=== PATIENT | male | born 1945 | race Asian ===

== ENCOUNTER → 2018-07-05 | Outpatient (CLI) | payer OTHER ==
[~2018-07-05] MED LIST: CHOL400T55 PO; METFORMIN PO; TERA5CAP3 PO; TERAZOSIN PO; VITAMIN D PO; [UNRECOGNIZED DRUG - OTHER] PO; [UNRECOGNIZED DRUG - OTHER] PO
[2018-07-05 14:10] LABS: MICROSCOPIC NOT IND
[2018-07-05 14:18] LABS: ALANINE AMINOTRANSFERASE 35 U/L (12-78); ALBUMIN 3.5 g/dL (3.4-5.0); ANION GAP 8 mmol/L (5-15); CHLORIDE 109 mmol/L (98-107); CREATININE 0.88 mg/dL (0.7-1.3)
[2018-07-05 14:20] LABS: ALKALINE PHOSPHATASE 112 U/L (45-117); BILIRUBIN,TOTAL 0.5 mg/dL (0.2-1.0); TOTAL PROTEIN 7.7 g/dL (6.4-8.2)
== END | disposition home or self-care (01) ==
LOC: STAR 12:46
PROVIDERS: ATTEND Student in an Organized Health Care Education/Training Program
DX: Z01.818 Encounter for other preprocedural examination (principal); D29.1 Benign neoplasm of prostate; R35.0 Frequency of micturition; R39.198 Other difficulties with micturition
CPT/HCPCS: 36415; 80053; 81003; 87086; 93005

== ENCOUNTER → 2018-08-10 | Outpatient (CLI) | payer OTHER ==
[~2018-08-10] MED LIST changes: +ACET-1600 PO; +M-171CAP PO; +METF500T17 PO; +MIRA25TA PO
== END | disposition home or self-care (01) ==
LOC: STAR 12:58
PROVIDERS: ATTEND Student in an Organized Health Care Education/Training Program
DX: Z02.9 Encounter for administrative examinations, unspecified (principal)

== ENCOUNTER 2018-08-17 12:51 | Day surgery (SDC) | payer OTHER ==
[~2018-08-17] VITALS: Ht 160 cm; Wt 69.2 kg
[~2018-08-17 12:51] MED LIST changes: -ACET-1600 PO; -M-171CAP PO; -METF500T17 PO; -MIRA25TA PO
[2018-08-17] MEDS ORDERED: ACET-1600 PO (13:33)
[2018-08-17] MEDS ORDERED: MIRA25TA PO (13:33)
[2018-08-17] MEDS ORDERED: M-171CAP PO (13:33)
[2018-08-17] MEDS ORDERED: METF500T17 PO (13:33)
[2018-08-17] MEDS ORDERED: TERA5CAP3 PO (13:33)
[2018-08-17] MEDS ORDERED: VITAMIN D PO (13:33)
[2018-08-17] MEDS: LACTATED RINGERS 1,000 ML IV SCH ×2 (13:56→17:10)
[2018-08-17] MEDS ORDERED: CEFAZOLIN 1,000 MG ONE (15:04)
[2018-08-17] MEDS ORDERED: FENTANYL PF 100 MCG/2ML ONE ×2 (15:04→16:43)
[2018-08-17] MEDS ORDERED: PROPOFOL 10 MG/ML, 20ML ONE (15:04)
[2018-08-17] MEDS ORDERED: ONDANSETRON 2MG/ML, 2ML ONE (15:04)
[2018-08-17] MEDS ORDERED: MIDAZOLAM 1 MG/ML, 2ML ONE (15:04)
[2018-08-17] MEDS ORDERED: LIDOCAINE 2% 100MG/5ML SYRINGE ONE (15:04)
[2018-08-17] MEDS ORDERED: DEXAMETHASONE 4 MG/ML, 1ML ONE (15:04)
[2018-08-17] MEDS ORDERED: METOCLOPRAMIDE 5 MG/ML, 2ML ONE (15:04)
[2018-08-17] MEDS ORDERED: OXYcodone 5 MG/5 ML ORAL.SOL UDC ONE (16:43)
[2018-08-17] MEDS ORDERED: MEPERIDINE/PF 25MG/0.5ML IVPush PRN (17:00)
[2018-08-17] MEDS ORDERED: LABETALOL 5MG/ML, 20ML IV PRN (17:00)
[2018-08-17] MEDS ORDERED: ONDANSETRON 2MG/ML, 2ML IVPush PRN (17:00)
[2018-08-17] MEDS ORDERED: MIDAZOLAM 1 MG/ML, 2ML IV PRN (17:00)
[2018-08-17] MEDS ORDERED: HYDROmorphone 1 MG/ML, 1ML IV PRN (17:00)
[2018-08-17] MEDS ORDERED: FENTANYL PF 100 MCG/2ML IV PRN (17:00)
[2018-08-17] MEDS ORDERED: OXYcodone 5 MG/5 ML ORAL.SOL UDC PO PRN (17:00)
[2018-08-17 17:31] VITALS: BP 146/89
== END 2018-08-17 18:27 | disposition home or self-care (01) ==
LOC: OUT 12:51 → 4NOR 17:26 → OUT 18:27
PROVIDERS: ATTEND Student in an Organized Health Care Education/Training Program
DX: N40.1 Benign prostatic hyperplasia with lower urinary tract symptoms (principal); E11.9 Type 2 diabetes mellitus without complications; Z98.890 Other specified postprocedural states
CPT/HCPCS: 52648; 82962; J0690; J1100; J2250; J2405; J2704; J2765; J3010; J7120; G0378

== ENCOUNTER 2018-12-26 20:14 | Emergency (ER) | payer OTHER ==
[~2018-12-26] VITALS: Ht 160 cm; Wt 73.0 kg
[~2018-12-26 20:14] MED LIST changes: +ACET-1600 PO; +M-171CAP PO; +METF500T17 PO; +MIRA25TA PO
[2018-12-26] MEDS ORDERED: PHENAZOPYRIDINE 200 MG TABLET PO ONE (21:00)
[2018-12-26] MEDS ORDERED: PHENAZOPYRIDINE 100 MG TABLET ONE ×2 (21:03→21:04)
[2018-12-26 21:15] LABS: MICROSCOPIC NOT IND
[2018-12-26 21:19] LABS: CULTURE INDICATED? NO
--- NOTE | 2018-12-26 21:30 | NUR ---
PAIN WITH URINATION X TODAY, VOIDS FREQUENTLY IN SMALL AMOUNTS, BLADDER SCANNED BY MD, CALL LIGHT IN REACH
[2018-12-26] MEDS ORDERED: LIDOCAINE 2%,20 ML JEL.PF.APP MM ONE ×2 (21:35→22:00)
[2018-12-26 21:40] LABS: ANION GAP 9 mmol/L (5-15); CALCIUM 8.8 mg/dL (8.5-10.1); CHLORIDE 106 mmol/L (98-107); CREATININE 0.98 mg/dL (0.7-1.3)
--- NOTE | 2018-12-26 22:30 | NUR ---
AT BEDSIDE INSERTING CAMEJO CATH, SUCCESSFUL ON FIRST TRY
[2018-12-26] MEDS ORDERED: CEFTRIAXONE 1,000 MG IM ONE (23:30)
[2018-12-26] MEDS ORDERED: CEFTRIAXONE 1,000 MG ONE (23:53)
[2018-12-26] MEDS ORDERED: LIDOCAINE-MPF 1%, 2ML ONE (23:53)
--- NOTE | 2018-12-27 00:17 | NUR ---
SWITCHED PT TO LEGBAG FOR URINE COLLECTION, CAME OUT AND NOTIFIED ME TUBE HAD COME OUT. UP INSPECTION, CAMEJO HAD COME OUT. WILL NOTIFY
[2018-12-27] MEDS ORDERED: LIDOCAINE 2%,20 ML JEL.PF.APP MM ONE ×2 (00:41→01:00)
[2018-12-27 01:30] VITALS: BP 134/91
[2018-12-27] MEDS ORDERED: HYDROcodone/APAP 5/325 TABLET ONE (01:48)
--- NOTE | 2018-12-27 01:50 | NUR ---
NEW CAMEJO IN PLACE, SWITCHED TO LEG BAG, PT INSTRUCTED ON CARE AND HOW TO CLEAN PENIS AND UBING, VOICED UNDERSTANDING
[2018-12-27] MEDS ORDERED: HYDROcodone/APAP 5/325 TABLET PO ONE (02:00)
--- NOTE | 2018-12-27 02:07 | NUR ---
Patient/Caregiver given discharge instructions and they have confirmed that they understand the instructions. Patient ambulatory with steady gait.
== END 2018-12-27 02:13 | disposition home or self-care (01) ==
LOC: ED 21:57
DX: R33.9 Retention of urine, unspecified (principal); R30.0 Dysuria; N40.0 Benign prostatic hyperplasia without lower urinary tract symptoms
CPT/HCPCS: 36415; 51702; 80048; 81003; 96372; 99284; J0696

== ENCOUNTER 2019-02-21 12:36 | Day surgery (SDC) | payer OTHER ==
[~2019-02-21] VITALS: Ht 160 cm; Wt 68.9 kg
[2019-02-21] MEDS ORDERED: MIDAZOLAM 1 MG/ML, 2ML ONE (12:43)
[2019-02-21] MEDS ORDERED: [UNRECOGNIZED DRUG - OTHER] (12:59)
[2019-02-21] MEDS ORDERED: MEPERIDINE/PF 25MG/0.5ML IVPush PRN (13:00)
[2019-02-21] MEDS ORDERED: ALBUTEROL/IPRATROPIUM 2.5MG/0.5MG, 3 ML NPPB PRN (13:00)
[2019-02-21] MEDS ORDERED: HYDROmorphone 2 MG/ML, 1ML IVPush PRN (13:00)
[2019-02-21] MEDS ORDERED: PROMETHAZINE 25 MG/ML, 1ML IV PRN (13:00)
[2019-02-21] MEDS ORDERED: TAMSULOSIN 0.4 MG CAP.ER.24H PO ONE (13:00)
[2019-02-21] MEDS ORDERED: ACETAMINOPHEN 500 MG TABLET PO ONE (13:00)
[2019-02-21] MEDS ORDERED: ONDANSETRON 2MG/ML, 2ML IV PRN (13:00)
[2019-02-21] MEDS ORDERED: MIDAZOLAM 1 MG/ML, 2ML IV PRN (13:00)
[2019-02-21] MEDS ORDERED: hydrALAzine 20 MG/ML, 1ML IV PRN (13:00)
[2019-02-21] MEDS ORDERED: PLEASE ENTER HEIGHT AND WEIGHT MC SCH (13:00)
[2019-02-21] MEDS ORDERED: METOPROLOL 1 MG/ML, 5ML IV PRN (13:00)
[2019-02-21] MEDS ORDERED: OXYcodone 5 MG/5 ML ORAL.SOL UDC PO PRN (13:00)
[2019-02-21] MEDS ORDERED: GABAPENTIN 300 MG CAPSULE PO ONE (13:00)
[2019-02-21] MEDS ORDERED: GABAPENTIN 300 MG CAPSULE ONE (13:08)
[2019-02-21] MEDS ORDERED: TAMSULOSIN 0.4 MG CAP.ER.24H ONE (13:08)
[2019-02-21] MEDS ORDERED: ACETAMINOPHEN 500 MG TABLET ONE (13:08)
[2019-02-21] MEDS ORDERED: LACTATED RINGERS 1,000 ML IV SCH (13:11)
[2019-02-21] MEDS ORDERED: TAMS-11 PO (13:14)
[2019-02-21 13:16] VITALS: BP 148/106
[2019-02-21] MEDS ORDERED: CIPROFLOXACIN 400MG/200ML PMX ONE (13:37)
[2019-02-21] MEDS ORDERED: FENTANYL PF 100 MCG/2ML ONE ×3 (13:55→14:43)
[2019-02-21] MEDS ORDERED: ONDANSETRON 2MG/ML, 2ML ONE (14:01)
[2019-02-21] MEDS ORDERED: DEXAMETHASONE 4 MG/ML, 1ML ONE (14:01)
[2019-02-21] MEDS ORDERED: PROPOFOL 10 MG/ML, 20ML ONE (14:01)
[2019-02-21] MEDS ORDERED: CEFAZOLIN 1,000 MG ONE (14:01)
[2019-02-21] MEDS ORDERED: OPIUM/BELLADONNA SUPP.RECT 16.2-30 MG ONE (14:19)
[2019-02-21] MEDS: FENTANYL PF 100 MCG/2ML IV PRN ×4 (14:21→15:02)
[2019-02-21] MEDS ORDERED: OPIUM/BELLADONNA SUPP.RECT 16.2-30 MG PR PRN (14:30)
[2019-02-21] MEDS ORDERED: OXYcodone 5 MG/5 ML ORAL.SOL UDC ONE (14:43)
== END 2019-02-21 18:45 | disposition home or self-care (01) ==
LOC: OUT 12:36
PROVIDERS: ATTEND Urology
DX: N32.0 Bladder-neck obstruction (principal); N32.81 Overactive bladder; N40.1 Benign prostatic hyperplasia with lower urinary tract symptoms; R35.0 Frequency of micturition; R39.14 Feeling of incomplete bladder emptying; R39.12 Poor urinary stream; N39.0 Urinary tract infection, site not specified; E11.9 Type 2 diabetes mellitus without complications; Z79.899 Other long term (current) drug therapy; Z90.81 Acquired absence of spleen; Z98.890 Other specified postprocedural states; Z83.3 Family history of diabetes mellitus
CPT/HCPCS: 52640; 82962; C1726; J0690; J0744; J1100; J2250; J2405; J2704; J3010; J7120